=== PATIENT | male | born 1980 | race Caucasian/White ===

== ENCOUNTER 2020-08-07 04:52 | Emergency (ER) | payer SELFPAY ==
[~2020-08-07] VITALS: Ht 180.3 cm; Wt 84.0 kg
[2020-08-07 05:16] VITALS: BP 143/90
[2020-08-07] MEDS: PLEASE ENTER ALLERGIES MC SCH ×2 (05:26→06:05)
[2020-08-07] MEDS ORDERED: THIAMINE 100 MG/ML, 2ML IM ONE (05:30)
[2020-08-07 05:48] LABS: BASOPHILS % (AUTO) 1 % (0-1); EOSINOPHILS % (AUTO) 2 % (1-7); LYMPHOCYTES % (AUTO) 23 % (22-44); MEAN CORPUSCULAR HEMOGLOBIN 29.8 pg (27.5-34.5); MEAN CORPUSCULAR HGB CONC 33.6 g/dL (33.2-36.2); MONOCYTES % (AUTO) 6 % (2-9); NEUTROPHILS % (AUTO) 69 % (42-75); PLATELET COUNT 239 x10^3/uL (130-400); RED BLOOD COUNT 5.28 x10^6/uL (4.38-5.82); RED CELL DISTRIBUTION WIDTH 14.7 % (9.4-14.8)
[2020-08-07] MEDS ORDERED: THIAMINE 100 MG/ML, 2ML ONE (05:53)
[2020-08-07 05:58] LABS: ALANINE AMINOTRANSFERASE 150 U/L (12-78); ALBUMIN 3.9 g/dL (3.4-5.0); ANION GAP 14 mmol/L (5-15); CALCIUM 8.7 mg/dL (8.5-10.1); CHLORIDE 116 mmol/L (98-107); CREATININE 0.78 mg/dL (0.7-1.3)
[2020-08-07 06:00] LABS: ALKALINE PHOSPHATASE 105 U/L (45-117); BILIRUBIN,TOTAL 0.4 mg/dL (0.2-1.0); MD NO; TOTAL PROTEIN 7.5 g/dL (6.4-8.2)
--- NOTE | 2020-08-07 06:39 | NUR ---
Note nahed in EDM - 08/07/20 at 0640 by HANNA Pt wanting to leave AMA prior to receiving xrays of hand and wrist. notified. MD talked to pt, pt verbalized understanding of risk of leaving prior to xray rslts. Pt signed AMA paperwork. Pt condition stable and ambulatory at departure.
--- NOTE | 2020-08-07 06:40 | NUR ---
Pt wanting to leave AMA prior to receiving xrays of hand and wrist. MD notified. MD talked to pt, pt verbalized understanding of risk of leaving prior to xray rslts. Pt signed AMA paperwork. Pt condition stable and ambulatory at departure.
== END 2020-08-07 07:00 | disposition home or self-care (01) ==
LOC: ED 06:54
DX: S66.411A Strain of intrinsic muscle, fascia and tendon of right thumb at wrist and hand level, initial encounter (principal); S00.11XA Contusion of right eyelid and periocular area, initial encounter; F10.220 Alcohol dependence with intoxication, uncomplicated; W19.XXXA Unspecified fall, initial encounter; Y93.89 Activity, other specified; Y92.89 Other specified places as the place of occurrence of the external cause; Y99.8 Other external cause status; Y90.0 Blood alcohol level of less than 20 mg/100 ml
CPT/HCPCS: 36415; 70450; 70486; 73110; 73130; 80053; 80307; 85025; 96372; 99285; J3411